=== PATIENT | male | born 1940 | race Caucasian/White ===

== ENCOUNTER → 2017-01-21 | Outpatient (CLI) | payer OTHER, MEDICARE | LOC: FCPNEURO 20:00 | PROVIDERS: ATTEND Psychiatry & Neurology Sleep Medicine | DX: G47.33 Obstructive sleep apnea (adult) (pediatric) (principal); G47.61 Periodic limb movement disorder ==

== ENCOUNTER → 2017-12-27 | Outpatient (CLI) | payer OTHER, MEDICARE ==
[~2017-12-27] MED LIST: IOPAMIDOL (ISOVUE-300) 100 ML BTL ONE
== END ==
LOC: FIMAGING 11:59
PROVIDERS: ATTEND Internal Medicine
DX: R10.31 Right lower quadrant pain (principal); R19.00 Intra-abdominal and pelvic swelling, mass and lump, unspecified site; Z85.46 Personal history of malignant neoplasm of prostate; Z85.3 Personal history of malignant neoplasm of breast
CPT/HCPCS: 74177; Q9967

== ENCOUNTER 2017-12-30 11:57 | Emergency (ER) | payer OTHER, MEDICARE ==
[2017-12-30 12:07] VITALS: TEMP 98.2
[2017-12-30] MEDS ORDERED: LIDOCAINE 4%/MENTHOL 1% PATCH TD ONE (12:57)
--- NOTE | 2017-12-30 12:57 | EDPHY ---
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 Since then he complains of left-sided lateral chest wall pain which is worse with movement or inspiration. Symptoms moderate, pain does not radiate. Not associated with hemoptysis or vomiting or diarrhea or laceration. REVIEW OF SYSTEMS: Eye: no change in vision ENT: no sore throat Cardiac: HPI no syncope HPI Pulmonary: HPI Abdomen: no vomiting, diarrhea, abdominal pain Musculoskeletal: no back pain Skin: no rash Neuro: no headache Constitutional: no fever : no urinary symptoms A comprehensive 10 point review of systems is otherwise negative aside from elements mentioned in the history of present illness. PAST MEDICAL HISTORY: Shoulder as above, high cholesterol, sleep apnea. Breast Cancer on the left. 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 Eyes: No scleral icterus. ENT, Mouth: Normal mucous membranes. Respiratory: Normal respiratory effort, breath sounds equal, lungs are clear to auscultation. No wheezing. Cardiovascular: Regular rate and rhythm. Gastrointestinal: Abdomen is soft and non tender. Specifically nontender the spleen heard Neurological: Alert, face symmetric, normal motor and sensory in extremities. Skin: Warm and dry, no rashes. No laceration or bruising. Musculoskeletal: No spinal tenderness but does have point tenderness over the intent tubs in the mid axillary line on the left. Psychiatric: Not agitated. Emergency Department course/MDM: Chest x-ray reviewed shows possible non placed rib fracture, could also be chest wall contusion. Clinically a nondisplaced rib fracture is likely I think. I think it is unlikely he would have splenic injury or hemothorax or pneumothorax. He is warned that full recovery may take several months. Lidocaine patch, Percocet, primary care follow-up. Smoking Status: Never smoked Constitutional: Initial Vital Signs Temperature (C) 36.8 C 12/30/17 12:00 Heart Rate 84 12/30/17 12:00 Respiratory Rate 18 12/30/17 12:00 Blood Pressure 143/78 H 12/30/17 12:00 O2 Sat (%) 96 12/30/17 12:00 O2 Delivery Mode Room Air Allergies/Adverse Reactions: No Known Allergies Allergy (Verified 12/30/17 12:02) Home Medications: Medication Instructions Recorded Lidocaine [Lidoderm] 1 each TP Q12 #5 adh..patch 12/30/17 Prevagen 12/30/17 Simvastatin [Zocor] 40 mg PO 12/30/17 oxyCODONE/APAP 5/325 [Percocet] 1 tab PO Q4-6PRN PRN #11 tab 12/30/17 Medical Decision Making - Diagnostics Imaging Results: Imaging Impressions Chest X-Ray 12/30/17 12:16 ]Impression: 1. No acute findings in the chest. 2. Possible COPD/emphysema. Chest x-ray shows no pneumothorax hemothorax, possible nondisplaced left fracture. Imaging: I viewed and interpreted images myself Differential Diagnosis: Differential considered including but not limited to spleen injury, pneumothorax , hemothorax, rib fracture, chest wall contusion. - Data Points Medications Given: Discontinued Medications Miscellaneous Medication (Icy Hot Lidocaine/Menthol 4%/1% Patch) 1 patch TD EDNOW ONE Stop: 12/30/17 12:58 Last Admin: 12/30/17 13:11 Dose: 1 patch Departure - Departure Disposition: Home, Routine, Self-Care Clinical Impression: Contusion of left chest wall Qualifiers: Encounter type: initial encounter Qualified Code(s): S20.212A - Contusion of left front wall of thorax, initial encounter Left rib fracture Qualifiers: Encounter type: initial encounter Rib fracture type: single rib Fracture type: closed Qualified Code(s): S22.32XA - Fracture of one rib, left side, initial encounter for closed fracture Condition: Good Instructions: Rib Fracture (ED) Referrals: Yifan Ch MD [Primary Care Provider] - 2-3 days, call for appt. Prescriptions: Lidocaine [Lidoderm] 1 each TP Q12 #5 adh..patch oxyCODONE/APAP 5/325 [Percocet] 1 tab PO Q4-6PRN PRN #11 tab PRN Reason: Pain
[2017-12-30 13:15] VITALS: BP 131/77; PULSE 70; RESP 20; O2SAT 97
[2017-12-30] MEDS ORDERED: PATCH REMOVAL 1 EA PATCH TD SCH (21:00)
== END 2017-12-30 13:15 | disposition home or self-care (01) ==
DX: S22.32XA Fracture of one rib, left side, initial encounter for closed fracture (principal); Z85.3 Personal history of malignant neoplasm of breast; W01.0XXA Fall on same level from slipping, tripping and stumbling without subsequent striking against object, initial encounter; Y99.8 Other external cause status; Y93.89 Activity, other specified

== ENCOUNTER 2018-11-26 11:06 | Inpatient (IN) | payer OTHER, MEDICARE ==
--- NOTE | 2018-11-26 12:31 | EDPHY ---
General - History Smoking Status: Never smoked Time Seen by Provider: 11/26/18 11:25 Narrative: CLINICAL IMPRESSION: Left leg DVT ASSESSMENT/PLAN: Pleasant 78-year-old male presents to the emergency department with 2-3 days of left leg pain, and swelling. Vital signs stable, no tachycardia or hypoxia. No complaints of chest pain or shortness of breath or pleuritic discomfort. No prior history of DVT or PE. No history of trauma, recent air or car travel, or coagulopathy. Patient had recent cryotherapy to a lesion on the left medial calf which does not appear secondarily infected. By ultrasound, patient has extensive DVT throughout the entire left leg. This was discussed and ultrasound images reviewed by Dr. Wiley who offered IR treatment and patient has decided to proceed with this. He was kept NPO, ICU bed ordered and plan to go to IR suite at 2:30 This afternoon. Patient seen and examined by Dr. Gooden as well. Stabilized in the ED prior to transfer to IR. DIFFERENTIAL DX: Differential includes but not limited to DVT, arterial thrombus, venous insufficiency, cellulitis ED PROCEDURES: See lab and/or imaging results below ED COURSE: Ultrasound results discussed with Radiology. Patient has extensive left DVT affecting external iliac, common femoral, perineal, skips popliteal. Results discussed with the patient. Discussed with Dr. Gooden who spoke with Dr. Wiley regarding possible IR intervention. She reviewed films and feels patient would be a good candidate for this. She will meet with the patient in the emergency department to discuss risks and benefits. If the patient elects to proceed with procedure, will plan to admit to hospitalist, ICU for interventional radiology. Alternative option is discharged home with oral anticoagulation therapy. Patient met with Dr. Wiley in the emergency department. He has elected to go to interventional Radiology for procedure. Case discussed between hospitalist and Dr. Gooden. ICU bed ordered. Patient kept NPO. CHIEF COMPLAINT: Left leg swelling HPI: This is a very pleasant 78-year-old male who presents to the emergency department with 2 days of atraumatic left leg swelling from the"foot to the groin". Patient reports last week he had a lesion frozen on the left calf by his pulmonary function technician. He also had a 2nd lesion on his face frozen. For 3 days following the procedure he was feeling fine, remained active, and has no history of trauma. Over the last 2 days he has noticed increased swelling, tightness and discomfort of the entire left leg. He reports intermittent tingling into the toes. No personal or family history of DVT. He is nonsmoker. He reports no trauma. No associated fever, chills, significant erythema or warmth to the leg or discharge from the site of treatment by his pulmonary function technician. He has no chest pain or shortness of breath. He has had multiple surgeries to both ankles secondary to injury sustained while he played in the [employer] many years ago. 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 Respiratory: No cough, no shortness of breath. Gastrointestinal: No abdominal pain, no vomiting, diarrhea. Musculoskeletal: No back pain, positive for joint swelling, joint pain, myalgias. Skin: No rashes, positive for color change to the left leg. Neurological: No headache, dizziness, weakness, or syncope. PHYSICAL EXAM: General Appearance: Alert, oriented, appropriate, cooperative, appears younger than stated age, NAD, well hydrated, non-toxic appearing, hypertensive, remainder of vital signs stable, no hypoxia. Respiratory: There are no retractions, lungs are clear to auscultation. Cardiac: Regular rate and rhythm, no murmurs or gallops. Neurological: Alert and oriented x 3, CN 2-12 grossly intact, normal gait no ataxia, DTR's intact, normal sensation and strength Skin: Mild erythema noted to the entire left leg which is obviously more swollen than the right leg. Scabbed abrasion noted to medial mid left calf. No surrounding cellulitic change, tenderness, crepitus, or purulent discharge Musculoskeletal: Swelling of left leg noted from ankle to groin. No temperature change between the legs. No pallor. Distal pedal and posterior tibialis pulses intact. Symmetric femoral pulses. Cap refill 2 sec. Pitting edema noted to medial malleolus region. Mild calf tenderness to palpation on the left. Full range of motion of hip, knee and ankle with no suggestion of septic joint. No clinical sign to suggest compartment syndrome. Sensation intact Psychiatric: Patient is oriented X 3, there is no agitation. MEDICAL DECISION MAKING: Secondary supervising physician at time of evaluation was Dr. Gooden. Diagnosis: Left leg DVT . New, requires workup Summary: See Assessment and Plan for summary of ED visit Independent visualization of images, tracing, or specimens: Yes. Decision to obtain medical records or history from someone other than the patient: Patient's Discussed patient with another provider: Dr. Gooden, Dr. Wiley, hospitalist Patient Progress: Stable. (Qeuntin Sprague) Medical Decision Making: PHYSICIAN DOCUMENTATION: The patient was evaluated and managed by the Physician Scientist/Engineer and myself. I have reviewed the chart and agree with the findings and plan of care as documented. In addition, I examined the patient myself at 1145. History confirmed as nontraumatic left leg swelling. Physical findings as follows: No leg redness or lymphangitis on visual inspection. 1255: Ultrasound results discussed with Dr. Wiley from interventional radiology. Dr. Wiley here at 1:20 p.m., patient consents and she will take him to the interventional suite about 2:30 p.m. Today. Admission hospitalist service, discussed with Fran Gonzales, 1326. I am the secondary supervising physician. (Kings Gooden) - Diagnostics Imaging Results: Imaging Impressions Extremity Venous Study 11/26/18 11:35 Impression: Extensive positive deep venous thrombosis involving the left leg from the left external iliac vein through the common femoral vein, femoral vein , and also involving the left calf peroneal veins. Findings and recommendations discussed with Emergency Department physician, Quentin Sprague PA-C at 1242 hour, 11/26/2018. Final report concurs with initial preliminary interpretation. - Objective Vital Signs: Initial Vital Signs Temperature (C) 36.7 C 11/26/18 11:17 Heart Rate 85 11/26/18 11:17 Respiratory Rate 18 11/26/18 11:17 Blood Pressure 157/86 H 11/26/18 11:17 O2 Sat (%) 93 11/26/18 11:17 O2 Delivery Mode Room Air Allergies/Adverse Reactions: No Known Allergies Allergy (Verified 11/26/18 11:15) Home Medications: Medication Instructions Recorded Allopurinol [Allopurinol 300 MG 300 mg PO DAILY 11/26/18 (RX)] Aspirin EC [Aspirin EC 81 mg (*)] 81 mg PO DAILY 11/26/18 Lisinopril/Hctz 20/12.5MG 1 ea PO DAILY 11/26/18 [Zestoretic/Prinzide 20/12.5MG (*)] Pravastatin Sodium 40 mg PO DAILY 11/26/18 Departure - Departure Disposition: To OP Cath/Surgery Clinical Impression: DVT (deep venous thrombosis) Qualifiers: DVT location: lower extremity Affected thrombotic vein of extremity: unspecified vein of extremity Chronicity: acute Laterality: left Qualified Code( s): I82.402 - Acute embolism and thrombosis of unspecified deep veins of left lower extremity Condition: Good
[2018-11-26 13:56] LABS: PLATELET COUNT 111 10^3/uL (150-400)
[2018-11-26 13:57] LABS: INR 1.08 (0.83-1.16); PROTIME(PATIENT) 14.2 SEC (12.0-15.0)
[2018-11-26] MEDS ORDERED: HEPARIN 10,000 UNIT/10 ML MDV (1,000 UNIT/ML) IVP PRN (14:17)
[2018-11-26] MEDS ORDERED: MEPERIDINE 25 MG/ML SYR IVP PRN (14:17)
[2018-11-26] MEDS ORDERED: PROTAMINE SULFATE 50 MG/5 ML VIAL IVP PRN (14:17)
[2018-11-26] MEDS ORDERED: FLUMAZENIL 0.5 MG/5 ML MDV IVP PRN (14:17)
[2018-11-26] MEDS ORDERED: MIDAZOLAM 2 MG/2 ML VIAL IVP PRN (14:17)
[2018-11-26] MEDS ORDERED: ALTEPLASE 2 MG VIAL IVP PRN (14:17)
[2018-11-26] MEDS ORDERED: NALOXONE HCL 0.4 MG/ML INJ IVP PRN (14:17)
[2018-11-26] MEDS ORDERED: fentaNYL 100 MCG/2 ML INJ IVP PRN (14:17)
[2018-11-26] MEDS ORDERED: HYDROmorphONE/DILAUDID 1 MG/ML INJ IVP PRN (14:22)
[2018-11-26] MEDS ORDERED: ONDANSETRON DISINTEGRATING 4 MG TAB PO PRN (14:22)
[2018-11-26] MEDS ORDERED: ACETAMINOPHEN 325 MG TAB PO PRN (14:22)
[2018-11-26] MEDS ORDERED: ONDANSETRON 4 MG/2 ML VIAL IVP PRN (14:22)
[2018-11-26] MEDS ORDERED: HEPARIN/DEXTROSE 25,000 UNIT/500 ML BAG ONE (14:28)
--- NOTE | 2018-11-26 14:29 | PDGENHP ---
History and Physical - Chief Complaint LLE swelling - History of Present Illness 78 yo male with h/o hypertension and hyperlipidemia presents to ED with LLE swelling. He saw a shoe shanker recently for a skin check and she froze a lesion off his LLE. Over the next couple of days, he developed increased swelling of his LLE. He denies pain. No CP or SOB. No prior h/o clots. No family h/o clotting disorder. He denies recent surgery or recent travel. His notes he has been more sedentary lately, sitting at home watching tv rather than his usual active lifestyle, but he still ambulates multiple times per day. No fevers/chills. No changes in his bowel or bladder habits. In the ED, an u/s revealed extensive DVT in LLE. IR consult was obtained. He will be admitted for further management. History Information - Allergies/Home Medication List Allergies/Adverse Reactions: No Known Allergies Allergy (Verified 11/26/18 11:15) Home Medications: Allopurinol [Allopurinol 300 MG (RX)] 300 mg PO DAILY 11/26/18 [Last Taken Unknown] Aspirin EC [Aspirin EC 81 mg (*)] 81 mg PO DAILY 11/26/18 [Last Taken Unknown] Lisinopril/Hctz 20/12.5MG [Zestoretic/Prinzide 20/12.5MG (*)] 1 ea PO DAILY [Last Taken Unknown] Pravastatin Sodium 40 mg PO DAILY 11/26/18 [Last Taken Unknown] I have personally reviewed and updated: family history, medical history, social history, surgical history - Past Medical History hypertension, hyperlipidemia Additional medical history: Gout - Surgical History Additional surgical history: b/l ankle surgery. 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 , at bedside. Review of Systems Review of Systems: ROS: 10pt was reviewed & negative except for what was stated in HPI & below Physical Exam Physical Exam: Temp Pulse Resp BP Pulse Ox 36.9 C 72 16 156/92 H 94 11/26/18 14:18 11/26/18 14:18 11/26/18 14:18 11/26/18 14:18 11/26/18 14:18 Constitutional: no apparent distress Eyes: PERRL Ears, Nose, Mouth, Throat: moist mucous membranes Cardiovascular: regular rate and rhythym, no murmur, rub, or gallop Respiratory: no respiratory distress, clear to auscultation Gastrointestinal: normoactive bowel sounds, soft, non-tender abdomen Skin: warm Musculoskeletal: full muscle strength, other (LLE edema with venous engorgement of foot/ankle) Neurologic: AAOx3 Psychiatric: interacting appropriately Lab Data & Imaging Review 11/26/18 13:30 11/26/18 13:30 WBC 9.22 10^3/uL (3.80-9.50) 11/26/18 13:30 RBC 4.55 10^6/uL (4.40-6.38) 11/26/18 13:30 Hgb 15.4 g/dL (13.7-17.5) 11/26/18 13:30 Hct 44.6 % (40.0-51.0) 11/26/18 13:30 MCV 98.0 fL (81.5-99.8) 11/26/18 13:30 MCH 33.8 pg (27.9-34.1) 11/26/18 13:30 MCHC 34.5 g/dL (32.4-36.7) 11/26/18 13:30 RDW 12.5 % (11.5-15.2) 11/26/18 13:30 Plt Count 111 10^3/uL (150-400) L 11/26/18 13:30 MPV 10.8 fL (8.7-11.7) 11/26/18 13:30 Neut % (Auto) 72.0 % (39.3-74.2) 11/26/18 13:30 Lymph % (Auto) 15.5 % (15.0-45.0) 11/26/18 13:30 [place] % (Auto) 9.4 % (4.5-13.0) 11/26/18 13:30 Eos % (Auto) 2.2 % (0.6-7.6) 11/26/18 13:30 Baso % (Auto) 0.5 % (0.3-1.7) 11/26/18 13:30 Nucleat RBC Rel Count 0.0 % (0.0-0.2) 11/26/18 13:30 Absolute Neuts (auto) 6.63 10^3/uL (1.70-6.50) H 11/26/18 13:30 Absolute Lymphs (auto) 1.43 10^3/uL (1.00-3.00) 11/26/18 13:30 Absolute Monos (auto) 0.87 10^3/uL (0.30-0.80) H 11/26/18 13:30 Absolute Eos (auto) 0.20 10^3/uL (0.03-0.40) 11/26/18 13:30 Absolute Basos (auto) 0.05 10^3/uL (0.02-0.10) 11/26/18 13:30 Absolute Nucleated RBC 0.00 10^3/uL (0-0.01) 11/26/18 13:30 Immature Gran % 0.4 % (0.0-1.1) 11/26/18 13:30 Immature Gran # 0.04 10^3/uL (0.00-0.10) 11/26/18 13:30 PT 14.2 SEC (12.0-15.0) 11/26/18 13:30 INR 1.08 (0.83-1.16) 11/26/18 13:30 APTT 25.9 SEC (23.0-38.0) 11/26/18 13:30 Fibrinogen 248 mg/dL (214-456) 11/26/18 13:30 Sodium 137 mEq/L (135-145) 11/26/18 13:30 Potassium 4.0 mEq/L (3.5-5.2) 11/26/18 13:30 Chloride 105 mEq/L (97-110) 11/26/18 13:30 Carbon Dioxide 24 mEq/l (22-31) 11/26/18 13:30 Anion Gap 8 mEq/L (6-14) 11/26/18 13:30 BUN 32 mg/dL (7-23) H 11/26/18 13:30 Creatinine 1.2 mg/dL (0.7-1.3) 11/26/18 13:30 Estimated GFR 58 01/21/19 13:30 Glucose 92 mg/dL (70-100) 11/26/18 13:30 Calcium 9.7 mg/dL (8.5-10.4) 11/26/18 13:30 Assessment & Plan Assessment: Extensive LLE DVT - candidate for intravascular thrombolysis given extensive clot burden with proximal involvement. Unprovoked. No family h/o clotting disorders. No recent travel or surgery. Note prior ankle surgeries 15 yrs ago. -IR consult for catheter directed heparin therapy -ICU admission -send hypercoag panel -venogram will evaluate anatomy, ?May thurner -will start systemic anticoagulation when IR therapy completed Hypertension - adequate control, cont home meds Hyperlipidemia - cont statin Gout - cont allopurinol Full code Dispo - admit to inpt, anticipate >48 hrs hospitalization for ongoing management of extensive DVT requiring catheter directed therapy. 40 min crit care.
[2018-11-26] MEDS ORDERED: NS 1,000 ML IV SCH (14:30)
[2018-11-26] MEDS ORDERED: ALTEPLASE 5 MG in NS 100 ML IV SCH (15:00)
[2018-11-26] MEDS ORDERED: fentaNYL 100 MCG/2 ML INJ ONE (15:25)
[2018-11-26] MEDS ORDERED: MIDAZOLAM 2 MG/2 ML VIAL ONE (15:25)
[2018-11-26] MEDS ORDERED: PROMETHAZINE HCL 25 MG/ML INJ IVP PRN (17:06)
[2018-11-26] MEDS ORDERED: LORazepam 1 MG TAB PO PRN (17:06)
[2018-11-26] MEDS ORDERED: HEPARIN/DEXTROSE 500 ML IV SCH (17:15)
[2018-11-26] MEDS ORDERED: IOPAMIDOL (ISOVUE-370) 150 ML BTL IV ONE (17:19)
[2018-11-26] MEDS: ALTEPLASE 5 MG in NS 100 ML IV SCH ×2 (18:25→22:50)
[2018-11-26] MEDS: HYDROCODONE/APAP 5/325 TAB PO PRN (23:54)
[2018-11-27] MEDS ORDERED: HEPARIN IV SCH (03:00)
[2018-11-27] MEDS ORDERED: NS IV SCH (03:00)
[2018-11-27 06:04] LABS: PLATELET COUNT 90 10^3/uL (150-400)
[2018-11-27] MEDS ORDERED: LISINOPRIL/HCTZ 20/12.5MG 1 EA TAB PO SCH (09:00)
[2018-11-27] MEDS: PRAVASTATIN SODIUM 40 MG TAB PO SCH (09:05)
[2018-11-27] MEDS: ALLOPURINOL 300 MG TAB PO SCH (09:06)
[2018-11-27] MEDS ORDERED: MIDAZOLAM 2 MG/2 ML VIAL ONE (10:42)
[2018-11-27] MEDS ORDERED: fentaNYL 100 MCG/2 ML INJ ONE (10:42)
[2018-11-27] MEDS ORDERED: fentaNYL 100 MCG/2 ML INJ IVP PRN (10:44)
[2018-11-27] MEDS ORDERED: MEPERIDINE 25 MG/ML SYR IVP PRN (10:44)
[2018-11-27] MEDS ORDERED: NALOXONE HCL 0.4 MG/ML INJ IVP PRN (10:44)
[2018-11-27] MEDS ORDERED: FLUMAZENIL 0.5 MG/5 ML MDV IVP PRN (10:44)
[2018-11-27] MEDS ORDERED: MIDAZOLAM 2 MG/2 ML VIAL IVP PRN (10:44)
[2018-11-27] MEDS ORDERED: NS 1,000 ML IV SCH (10:45)
[2018-11-27] MEDS ORDERED: HEPARIN 10,000 UNIT/10 ML MDV (1,000 UNIT/ML) ONE (11:04)
--- NOTE | 2018-11-27 11:08 | PDMN ---
Medical Necessity Medical necessity: Pt meets IP criteria as of 11/26/18 per MD and MCG M-350 (DVT of lower extremities); est los > 2mn for ongoing tx and management of extensive LLE DVT; requiring IR consultation, ICU care and thrombolysis.
[2018-11-27] MEDS ORDERED: ALTEPLASE 2 MG VIAL ONE (11:24)
--- NOTE | 2018-11-27 12:25 | PDRADPN ---
Radiology Procedure Note Date of Procedure: 11/27/18 Radiologist: Latosha Hernandez Anesthesia: IV Sedation Pre-op Diagnosis: LLE DVT Post-op Diagnosis: Same Procedure: Day 2 lysis Finding(s): No sigificant benefit after tPA last night with residual large volume thrombus in the ileofemoral vein; Venoplasty, fr[place], and angiojet performed which improved clot burden. Residual webs and stenosis seen but improved outflow. Will require usp anticoagulation. Inf/Abcess present in the surg proc area at time of surgery?: No
[2018-11-27] MEDS ORDERED: IOPAMIDOL (ISOVUE-370) 150 ML BTL IV ONE (12:43)
--- NOTE | 2018-11-27 12:59 | ASMTCASEMG ---
Living Arrangements What is your living Answers: With Spouse arrangement? Who do you live with? Type Of Residence What kind of residence do Answers: House you live in? Discharge Plan Comments Coordination Status Comments Notes: Patient is an 78yo male who has been admitted for an extensive LLE DVT requiring catheter directed therapy. PT eval has been ordered.D/C plan TBD. CM will follow. Date Signed: 11/27/2018 12:58 PM Electronically Signed By:Cortney Ordaz LCSW
[2018-11-27] MEDS: ENOXAPARIN 100 MG/ML SYR SC SCH ×2 (14:10→20:28)
[2018-11-27] MEDS ORDERED: HEPARIN 5,000 UNIT/0.5 ML INJ SC ONE (14:15)
[2018-11-27] MEDS ORDERED: ALTEPLASE 2 MG VIAL IVP ONE (14:15)
[2018-11-27] MEDS ORDERED: HEPARIN 5,000 UNIT/0.5 ML INJ IV ONE (14:30)
--- NOTE | 2018-11-27 15:16 | HOSPPROG ---
Hospitalist Progress Note Assessment/Plan: Extensive LLE DVT - S/P IR intervention, did not tolerate heparin infusion overnight due to low plts and low fibrinogen. He returned to IR today for balloon angioplasty and mechanical thrombectomy with improvement in clot burden. Physical exam also improved with less edema. -cont Lovenox 100 mg SC BID -will transition to Eliquis at discharge, likely in am Hypertension - adequate control, cont home meds Hyperlipidemia - cont statin Gout - cont allopurinol Full code Dispo - acont inpt, transfer to med/surg Subjective: Pt feels better. Denies pain. Notes LLE swelling is much improved. No CP or SOB. He is eating. Currently on bedrest s/p IR intervention. Objective: Vital Signs Temp Pulse Resp BP Pulse Ox 36.9 C 63 12 127/79 H 95 11/26/18 14:18 11/27/18 13:59 11/27/18 13:59 11/27/18 13:59 11/27/18 13:59 Laboratory Results 11/27/18 05:55 11/26/18 13:30 11/26/18 11/27/18 11/28/18 05:59 05:59 05:59 Intake Total 255.1 Output Total 980 300 Balance -724.9 -300 PT 14.2 SEC (12.0-15.0) 11/26/18 13:30 INR 1.08 (0.83-1.16) 11/26/18 13:30 - Physical Exam Constitutional: no apparent distress Eyes: PERRL Ears, Nose, Mouth, Throat: moist mucous membranes Cardiovascular: regular rate and rhythym Respiratory: no respiratory distress, clear to auscultation Gastrointestinal: normoactive bowel sounds, soft, non-tender abdomen Skin: warm Musculoskeletal: full muscle strength, other (LLE edema improved) Neurologic: AAOx3 Psychiatric: interacting appropriately ICD10 Worksheet Patient Problems: Problems Problem Status Onset DVT (deep venous thrombosis) Acute
[2018-11-27] MEDS: HYDROCODONE/APAP 5/325 TAB PO PRN (20:27)
[2018-11-28 07:28] VITALS: BP 112/70
[2018-11-28] MEDS: PRAVASTATIN SODIUM 40 MG TAB PO SCH (07:57)
[2018-11-28] MEDS: ALLOPURINOL 300 MG TAB PO SCH (07:58)
[2018-11-28] MEDS: ENOXAPARIN 100 MG/ML SYR SC SCH (08:55)
--- NOTE | 2018-11-28 11:56 | ASMTDCNOTE ---
Case Management Discharge Discharge Order Complete? Answers: Yes Patient to Obtain Answers: via Family Medications Transportation Arranged Answers: Family/Friends Discharge Comments Notes: CM spoke with MD/RN/PT, pt is being discharged independently. No CM needs identified. Family to transport. Date Signed: 11/28/2018 11:55 AM Electronically Signed By:DANTE Fernandez
--- NOTE | 2018-11-28 11:59 | ASDISCHSUM ---
Discharge Information Plan Status:Home with No Needs Medically Cleared to Leave: Discharge Date: CM D/C Disposition:Home, Routine, Self-Care ADT D/C Disposition:Home, Routine, Self-Care Projected Discharge Date: Transportation at D/C:Family Discharge Delay Reason: Follow-Up Date: Discharge Slot: Final Diagnosis: Placement Information Patient Contact Information Contact Name:NAYE Relationship: Address:[address] City:[facility] Phone: State/Zip Code:[place] [address] Email: Financial Information Financial Class:Medicare Primary Plan Desc:MEDICARE INPATIENT Primary Plan Number:[id number] Secondary Plan Desc:AARP/MDR SUPPLEMENT Secondary Plan Number:[id number] Assessment Information LACE LACE Length of stay for Answers: 1 day current admission Acuity / Level of Answers: Yes Care: Did the patient have an inpatient admission? Comorbidities - select Answers: Other Notes: HTN; HLD all that apply # of Emergency department Answers: 1-2 visits in the last 6 months Score: 6 Date Signed: 11/28/2018 11:58 AM Electronically Signed By:DANTE Fernandez [facility] Initial CM Assessment Living Arrangements What is your living Answers: With Spouse arrangement? Who do you live with? Type Of Residence What kind of residence do Answers: House you live in? Discharge Plan Comments Coordination Status Comments Notes: Patient is an 78yo male who has been admitted for an extensive LLE DVT requiring catheter directed therapy. PT eval has been ordered.D/C plan TBD. CM will follow. Date Signed: 11/27/2018 12:58 PM Electronically Signed By:Cortney Ordaz LCSW Case Management Discharge Plan Note Case Management Discharge Discharge Order Complete? Answers: Yes Patient to Obtain Answers: via Family Medications Transportation Arranged Answers: Family/Friends Discharge Comments Notes: CM spoke with MD/RN/PT, pt is being discharged independently. No CM needs identified. Family to transport. Date Signed: 11/28/2018 11:55 AM Electronically Signed By:DANTE Fernandez Intervention Information
--- NOTE | 2018-11-28 13:47 | GDS ---
DISCHARGE DIAGNOSES: 1. Left lower extremity deep venous thrombosis, status post catheter directed heparin and mechanical thrombectomy. 2. Hypertension. 3. Hyperlipidemia. 4. Gout. 5. Thrombocytopenia. CONSULTANTS: Dr. Cherrie Wiley, Interventional Radiology. HISTORY OF PRESENT ILLNESS: For details, please see history and physical dated November 26, 2018. 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 Ultrasound revealed extensive DVT reaching his external iliac veins. Interventional Radiology was consulted and he was admitted to the hospital for further manag ement. HOSPITAL COURSE: The patient was taken to the IR suite and underwent catheter directed heparin thera py; however, his platelets were slightly low, and therefore, he was not able to tolerate ongoing hepa rin therapy throughout that first night. He returned for venogram the following day, and ultimately underwent mechanical thrombectomy with balloon venoplasty of the left iliofemoral vein, and this resu lted in improved vascular flow. In addition, it is noted that there was some residual scarring and w eb formation predominantly within the femoral vein. It is possible that his previous hip arthroplast y may be impinging that vein contributing to decreased flow and thrombus formation. In addition, a h ypercoagulable panel was sent on admission. He does not have a family history of clotting disorders, nor does he have or risk factors, such as recent travel, surgery, or trauma. He was treated with vargas bcutaneous Lovenox 1 mg/kg twice daily during his hospitalization. He is transitioned to Eliquis at [id number] mg twice daily for a week, followed by 5 mg twice daily. I recommend he have outpatient followup with Hematology to further discuss his thrombocytopenia, as well as duration of anticoagulat ion. I have prepared him for the probability of lifelong anticoagulation, especially if this is rela steven to anatomic vein impingement contributing to his extensive DVT formation. FOLLOWUP: 1. Dr. Billy Wong, [facility]. 2. Dr. Yifan Ch, primary care. DISCHARGE MEDICATIONS: Please see [facility] for completed outpatient medication list. New medications on discharge, include Eliquis 10 mg p.o. b.i.d. daily for 7 days, followed by 5 mg p. o. b.i.d. He is given 1 month prescription and he will need either Hematology or his primary care to refill this. He will continue all other outpatient medications as previously prescribed, including lisinopril HCTZ 20/12.5 one p.o. daily, allopurinol 300 mg p.o. daily, pravastatin 40 mg p.o. daily. I did recommend he discontinue his aspirin as he is initiating anticoagulation. /[id number]/MODL
== END 2018-11-28 13:01 | disposition home or self-care (01) | DRG 272 ==
LOC: F2N 16:59 → F3E 11-28 06:27
PROVIDERS: ADMIT Hospitalist; ATTEND Hospitalist
PROC: 3E03317 Introduction of Other Thrombolytic into Peripheral Vein, Percutaneous Approach (ICD-10-PCS; 2018-11-26)
PROC: 3E03317 Introduction of Other Thrombolytic into Peripheral Vein, Percutaneous Approach (ICD-10-PCS; principal; 2018-11-27)
PROC: 06CG3ZZ Extirpation of Matter from Left External Iliac Vein, Percutaneous Approach (ICD-10-PCS; principal; 2018-11-27)
DX: I82.422 Acute embolism and thrombosis of left iliac vein (principal); I82.412 Acute embolism and thrombosis of left femoral vein; I10 Essential (primary) hypertension; E78.5 Hyperlipidemia, unspecified; M10.9 Gout, unspecified; D69.6 Thrombocytopenia, unspecified
CPT/HCPCS: 85300-90; 85303-90; 85306-90; 86147-90; C1725; C1757; C1769; C1894; J1644; J1650; J2250; J2310; J2997; J3010; Q9967

== ENCOUNTER → 2019-01-15 | Outpatient (CLI) | payer OTHER, MEDICARE | LOC: FIMAGING 10:10 | PROVIDERS: ATTEND Internal Medicine Hematology & Oncology | DX: K76.89 Other specified diseases of liver (principal); D73.89 Other diseases of spleen; D69.6 Thrombocytopenia, unspecified ==